=== PATIENT | female | born 1950 | race Hispanic/Latino ===

== ENCOUNTER → 2017-06-13 | Outpatient (CLI) | payer MEDICARE ==
[~2017-06-13] MED LIST: ALEN70TA47 PO; AMLO2.5T PO; CALC-1174 PO; CHOL100040 PO; CYAN10009 PO; LISI-617 PO; OMEP40CA37 PO
[2017-06-13 15:23] VITALS: BP 144/81
== END | disposition home or self-care (01) ==
LOC: WHH 10:45
PROVIDERS: ATTEND Podiatrist Foot & Ankle Surgery
DX: L97.311 Non-pressure chronic ulcer of right ankle limited to breakdown of skin (principal); I10 Essential (primary) hypertension; E78.00 Pure hypercholesterolemia, unspecified; M19.90 Unspecified osteoarthritis, unspecified site
CPT/HCPCS: A4450; A4649; G0463

== ENCOUNTER → 2017-07-11 | Outpatient (CLI) | payer MEDICARE ==
[~2017-07-11] MED LIST changes: +LIDOCAINE/PRILOCAINE CREAM 5GM TUBE TP ONE
[2017-07-11 14:41] VITALS: BP 114/57
== END | disposition home or self-care (01) ==
LOC: WHH 09:40
PROVIDERS: ATTEND Podiatrist Foot & Ankle Surgery
DX: L97.311 Non-pressure chronic ulcer of right ankle limited to breakdown of skin (principal); I10 Essential (primary) hypertension; E78.00 Pure hypercholesterolemia, unspecified; M19.90 Unspecified osteoarthritis, unspecified site; I73.9 Peripheral vascular disease, unspecified
CPT/HCPCS: 11042; A4649; J3490

== ENCOUNTER 2017-07-25 10:30 | Outpatient (CLI) | payer MEDICARE ==
[~2017-07-25 10:30] MED LIST changes: -LIDOCAINE/PRILOCAINE CREAM 5GM TUBE TP ONE
[2017-07-25 15:17] VITALS: BP 150/86
== END 2017-07-25 17:00 | disposition home or self-care (01) ==
LOC: WHH 10:30
PROVIDERS: ATTEND Podiatrist Foot & Ankle Surgery
DX: L89.519 Pressure ulcer of right ankle, unspecified stage (principal); I10 Essential (primary) hypertension; E78.00 Pure hypercholesterolemia, unspecified; M19.90 Unspecified osteoarthritis, unspecified site; I73.9 Peripheral vascular disease, unspecified
CPT/HCPCS: 82948; G0463

== ENCOUNTER 2018-08-02 08:11 | Day surgery (SDC) | payer MEDICARE ==
[2018-08-01 16:12] LABS: CREATININE 0.5 mg/dL (0.5-1.5); POTASSIUM 4.2 mmol/L (3.5-5.1)
[2018-08-01 16:21] VITALS: BP 109/52
[2018-08-01 16:22] LABS: BASOPHILS % (AUTO) 1.2 % (0.0-5.0); EOSINOPHILS % (AUTO) 0.7 % (0.0-8.0); HEMATOCRIT 33.7 % (36-48); MEAN CORPUSCULAR HEMOGLOBIN 30.1 pg (27.0-33.0); MEAN CORPUSCULAR HGB CONC 33.9 g/dL (32.0-36.0); MONOCYTES % (AUTO) 6.4 % (3.0-13.0); NEUTROPHILS % (AUTO) 64.7 % (40.0-77.0); PLATELET COUNT (AUTO) 291 K/uL (130-400); RED BLOOD CELL COUNT(AUTO) 3.78 MIL/uL (4.00-5.50); RED CELL DISTRIBUTION WIDTH 13.9 % (11.0-15.5); WHITE BLOOD COUNT (AUTO) 5.6 K/uL (4.8-10.8)
--- NOTE | 2018-08-01 16:47 | NUR ---
NAPROXEN INFORMED DR. BALTAZAR PT USED NAPROXEN YESTERDAY. NO ORDERS RECEIVED. PROCEED WITH PLANNED PROCEDURE
[2018-08-02] VITALS (14 sets, daily range): BP systolic 103–131; BP diastolic 54–74
[~2018-08-02] VITALS: Ht 154.9 cm; Wt 60.1 kg
[~2018-08-02 08:11] MED LIST changes: -ALEN70TA47 PO; -AMLO2.5T PO; +AMLO2.5T4 PO; +ATOR20TA65 PO; -CALC-1174 PO; -CHOL100040 PO; -CYAN10009 PO; +FE F1CAP33 PO; +NAPR375T6 PO
[2018-08-02] MEDS ORDERED: LACTATED RINGERS 1000ML 1,000 ML IV ONE (09:37)
[2018-08-02] MEDS ORDERED: CEFAZOLIN SODIUM 1 GM VIAL ONE ×2 (09:37→11:08)
[2018-08-02] MEDS ORDERED: ONDANSETRON HCL 4 MG/2 ML VIAL ONE ×2 (10:23→10:27)
[2018-08-02] MEDS ORDERED: LIDOCAINE PF 2% 5ML ABBOJECT ONE (10:23)
[2018-08-02] MEDS ORDERED: DEXAMETHASONE SOD PHOSPHATE 10MG/ML 1ML VIAL ONE ×2 (10:23→10:27)
[2018-08-02] MEDS ORDERED: SUCCINYLCHOLINE 200MG/10ML SYR ONE (10:23)
[2018-08-02] MEDS ORDERED: GLYCOPYRROLATE 1 MG/5 ML SYRINGE ONE (10:24)
[2018-08-02] MEDS ORDERED: MIDAZOLAM HCL 1 MG/ML 2ML VIAL ONE (10:25)
[2018-08-02] MEDS ORDERED: NEOSTIGMINE 5MG/5ML SYR IV ONE (10:25)
[2018-08-02] MEDS ORDERED: PROPOFOL 10 MG/ML 20ML VIAL IV ONE (10:25)
[2018-08-02] MEDS ORDERED: FENTANYL CITRATE PF 50 MCG/1 ML 2ML VIAL ONE ×2 (10:25→11:34)
[2018-08-02] MEDS ORDERED: ROCURONIUM 10MG/1ML SYR 10 MG/ML ML ONE (10:26)
[2018-08-02] MEDS ORDERED: FAMOTIDINE/PF 20 MG/2 ML VIAL IV ONE (10:47)
[2018-08-02] MEDS ORDERED: SODIUM CHLORIDE 0.9% 10 ML VIAL ONE (11:09)
[2018-08-02] MEDS ORDERED: BUPIVACAINE/PF 0.25% 30ML VIAL IJ ONE (11:44)
[2018-08-02] MEDS ORDERED: CEPH500B PO (12:06)
[2018-08-02] MEDS ORDERED: TYL3 PO (12:06)
--- NOTE | 2018-08-02 13:03 | NUR ---
POST PROCEDURE RECEIVED FROM PACU VIA STRETCHER S/P RIGHT ANKLE HARDWARE REMOVAL. CONNECTED TO CONTINUOUS CARDIOPULMONARY MONITORING. ALERT, DENIES PAIN AT PRESENT TIME. RENETTA WRAP TO RIGHT ANKLE CD&I. 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
--- NOTE | 2018-08-02 13:30 | NUR ---
ACTIVITY UP TO CHAIR WITH STANDBY ASSIST OF 1. TOLERATED W/O COMPLICATIONS. DENIES DIZZINESS, PAIN, OR NAUSEA.
--- NOTE | 2018-08-02 13:46 | NUR ---
DISCHARGE DISCHARGE INSTRUCTIONS INCLUDING DIET, NEW MEDICATIONS, ACTIVITY(PARTIAL WEIGHT BEARING WITH CRUTCHES), AND REASONS TO NOTIFY DR. BALTAZAR (FEVER >101, AND SEVERE PAIN NOT RELIEVED BY PAIN MEDICATION), DRESSING CARE DISCUSSED WITH DAUGHTER AND PT. TRANSLATED TO [facility] BY DEJUAN PUENTE. PER SON PT HAS CRUTCHES IN THE VAN. OPPORTUNITY GIVEN TO ASK QUESTIONS. QUESTIONS ADDRESSED.
--- NOTE | 2018-08-02 13:47 | NUR ---
DISCHARGE DISCHARGED VIA W/C. AWAKE IN NO ACUTE DISTRESS. DENIES PAIN. RENETTA WRAP DRESSING TO RIGHT ANKLE CD&I.
== END 2018-08-02 13:46 | disposition home or self-care (01) ==
LOC: DAH 08:11
PROVIDERS: ATTEND Orthopaedic Surgery
DX: T84.098A Other mechanical complication of other internal joint prosthesis, initial encounter (principal); Z98.890 Other specified postprocedural states; I10 Essential (primary) hypertension; E78.00 Pure hypercholesterolemia, unspecified; M81.0 Age-related osteoporosis without current pathological fracture; M19.90 Unspecified osteoarthritis, unspecified site; Z79.899 Other long term (current) drug therapy; Z90.710 Acquired absence of both cervix and uterus; G89.29 Other chronic pain
CPT/HCPCS: 20680; 36415; 76000; 80048; 85025; 88300; 93005; A4218; A4649; A4930 ×2; A6223; J0330; J0690 ×2; J1100 ×2; J2001; J2250; J2405 ×2; J2704; J2710; J3010 ×2; J3490 ×3; J7120

== ENCOUNTER 2020-10-29 17:04 | Emergency (ER) | payer OTHER, MEDICARE ==
[~2020-10-29 17:04] MED LIST changes: +CEPH500B PO; -LISI-617 PO; +LISI-809 PO; +OMEP40CA13 PO; -OMEP40CA37 PO; +TYL3 PO
[2020-10-29] MEDS ORDERED: FENTANYL CITRATE PF 50 MCG/1 ML 2ML VIAL ONE (20:28)
[2020-10-29] MEDS ORDERED: LORAZEPAM 2 MG/ML 1 ML VIAL ONE (20:29)
[2020-10-29] MEDS ORDERED: PROPOFOL 10 MG/ML 20ML VIAL IV ONE (21:03)
== END 2020-10-29 23:26 | disposition home or self-care (01) ==
LOC: EDH 17:04
DX: S43.014A Anterior dislocation of right humerus, initial encounter (principal); I10 Essential (primary) hypertension; M81.0 Age-related osteoporosis without current pathological fracture; X58.XXXA Exposure to other specified factors, initial encounter; Y93.89 Activity, other specified; Y92.89 Other specified places as the place of occurrence of the external cause; Y99.8 Other external cause status
CPT/HCPCS: 23650; 71045; 73020; 96374; 96375; 99285; J2060; J2704; J3010

== ENCOUNTER 2021-11-03 19:19 | Inpatient (IN) | payer OTHER, MEDICARE ==
[~2021-11-03] VITALS: Ht 162.6 cm; Wt 69.0 kg
[~2021-11-03 19:19] MED LIST changes: -LISI-809 PO; +LISI5TAB21 PO; -OMEP40CA13 PO; +OMEP40CA21 PO
[2021-11-03 19:51] LABS: BASOPHILS % (AUTO) 0.6 % (0.0-5.0); EOSINOPHILS % (AUTO) 0.8 % (0.0-8.0); HEMATOCRIT 28.9 % (36-48); LYMPHOCYTES % (AUTO) 27.4 % (21.0-51.0); MEAN CORPUSCULAR HEMOGLOBIN 28.9 pg (27.0-33.0); MEAN CORPUSCULAR HGB CONC 34.9 g/dL (32.0-36.0); MEAN CORPUSCULAR VOLUME 82.8 fL (79-99); MONOCYTES % (AUTO) 7.9 % (3.0-13.0); PLATELET COUNT (AUTO) 240 K/uL (130-400); RED BLOOD CELL COUNT(AUTO) 3.49 MIL/uL (4.00-5.50); RED CELL DISTRIBUTION WIDTH 13.5 % (11.0-15.5); WHITE BLOOD COUNT (AUTO) 6.2 K/uL (4.8-10.8)
[2021-11-03] MEDS ORDERED: MORPHINE 4 MG SYG IVP ONE (20:00)
[2021-11-03] MEDS ORDERED: KETOROLAC 15MG/ML VIAL (15MG/ML) IV ONE (20:00)
[2021-11-03] MEDS ORDERED: ONDANSETRON 4MG INJ IVP ONE (20:00)
[2021-11-03 20:18] LABS: INR 0.94 (0.85-1.15); PROTHROMBIN TIME 10.3 SEC (9.6-11.6)
[2021-11-03 20:25] LABS: ALBUMIN 3.7 g/dL (3.5-5.0); BILIRUBIN,TOTAL 0.4 mg/dL (0.2-1.0); CREATININE 0.5 mg/dL (0.5-1.5); POTASSIUM 3.2 mmol/L (3.5-5.1); TOTAL PROTEIN, SERUM 6.6 g/dL (6.0-8.3)
[2021-11-03] MEDS ORDERED: 0.9% NACL 500ML IV.SOLN 500 ML IV ONE (21:00)
[2021-11-03 21:18] LABS: APPEARANCE,URINE Clear (CLEAR); BILIRUBIN,URINE Negative (NEGATIVE); COLOR,URINE Yellow (YELLOW); GLUCOSE, URINE (UA) Negative (NEGATIVE); KETONES,URINE Negative (NEGATIVE); LEUKOCYTE ESTERASE ,URINE Negative (NEGATIVE); NITRATE,URINE Negative (NEGATIVE); OCCULT BLOOD,URINE Negative (NEGATIVE); PH,URINE 6.5 (5.0-8.0); PROTEIN,URINE Negative (NEGATIVE); UROBILINOGEN,URINE 0.2 mg/dL (0.2-1.0)
[2021-11-03 23:00] VITALS: BP 104/60
[2021-11-03] MEDS ORDERED: HYDROCODONE/ACETAMINOPHEN 5/325 MG TAB PO PRN (23:45)
[2021-11-04] MEDS ORDERED: HYDRALAZINE 20MG/ML VIAL IV PRN
[2021-11-04] MEDS ORDERED: ACETAMINOPHEN 650 MG SUPPOSITORY RC PRN
[2021-11-04] MEDS ORDERED: ONDANSETRON 4MG INJ IVP PRN
[2021-11-04] MEDS ORDERED: LACTULOSE 20 GM/30 ML UDCUP PO PRN
[2021-11-04] MEDS: HYDROCODONE/ACETAMINOPHEN 5/325 MG TAB PO PRN ×2 (00:05→20:45)
[2021-11-04] MEDS: 0.9%NACL 1000ML 1,000 ML IV SCH ×3 (00:07→16:00)
[2021-11-04] MEDS: IPRATROPIUM 0.5 MG/2.5 ML INH IH SCH ×5 (02:06→23:09)
[2021-11-04 03:26] VITALS: BP 130/66
[2021-11-04 03:48] LABS: MEAN CORPUSCULAR HEMOGLOBIN 28.9 pg (27.0-33.0); MEAN CORPUSCULAR HGB CONC 35.4 g/dL (32.0-36.0); MEAN CORPUSCULAR VOLUME 81.9 fL (79-99); RED BLOOD CELL COUNT(AUTO) 3.42 MIL/uL (4.00-5.50); RED CELL DISTRIBUTION WIDTH 13.3 % (11.0-15.5); WHITE BLOOD COUNT (AUTO) 9.3 K/uL (4.8-10.8)
[2021-11-04 04:02] LABS: INR 0.93 (0.85-1.15); PROTHROMBIN TIME 10.2 SEC (9.6-11.6)
[2021-11-04 04:24] LABS: CREATININE 0.5 mg/dL (0.5-1.5); MAGNESIUM 1.5 mg/dL (1.80-2.40); PHOSPHORUS 3.7 mg/dL (2.5-4.9); POTASSIUM 3.8 mmol/L (3.5-5.1)
[2021-11-04 07:45] VITALS: BP 124/76
[2021-11-04] MEDS: MAGNESIUM 2GM PREMIX 50ML 50 ML IV PRN (10:37)
[2021-11-04 11:03] LABS: CREATININE 0.5 mg/dL (0.5-1.5); POTASSIUM 3.7 mmol/L (3.5-5.1)
[2021-11-04 11:08] LABS: ALBUMIN 3.3 g/dL (3.5-5.0); BILIRUBIN,TOTAL 0.7 mg/dL (0.2-1.0); TOTAL PROTEIN, SERUM 6.2 g/dL (6.0-8.3)
[2021-11-04 11:21] VITALS: BP 137/65
[2021-11-04 16:46] VITALS: BP 123/69
[2021-11-04 19:22] VITALS: BP 135/74
[2021-11-04] MEDS ORDERED: FAMO20TA8 PO (19:57)
[2021-11-04] MEDS ORDERED: ALEN70TA2 PO (19:57)
[2021-11-04 23:35] VITALS: BP 130/74
[2021-11-05] VITALS (26 sets, daily range): BP systolic 111–176; BP diastolic 48–84
[2021-11-05 04:04] LABS: HEMATOCRIT 29.2 % (36-48); MEAN CORPUSCULAR HEMOGLOBIN 28.7 pg (27.0-33.0); MEAN CORPUSCULAR HGB CONC 34.6 g/dL (32.0-36.0); RED BLOOD CELL COUNT(AUTO) 3.52 MIL/uL (4.00-5.50); RED CELL DISTRIBUTION WIDTH 13.5 % (11.0-15.5)
[2021-11-05 04:55] LABS: ALBUMIN 3.1 g/dL (3.5-5.0); BILIRUBIN,TOTAL 0.6 mg/dL (0.2-1.0); CREATININE 0.6 mg/dL (0.5-1.5); MAGNESIUM 2.1 mg/dL (1.80-2.40); POTASSIUM 3.8 mmol/L (3.5-5.1); T4 (THYROXINE) 7.8 ug/dL (4.7-13.3); THYROID STIMULATING HORMONE 3.82 uIU/mL (0.36-3.74); TOTAL PROTEIN, SERUM 6.2 g/dL (6.0-8.3)
[2021-11-05] MEDS: IPRATROPIUM 0.5 MG/2.5 ML INH IH SCH ×3 (06:53→20:07)
[2021-11-05] MEDS ORDERED: PROPOFOL 10 MG/ML 20ML VIAL IV ONE (07:35)
[2021-11-05] MEDS ORDERED: FENTANYL CITRATE PF 50 MCG/1 ML 5ML AMP IV ONE (07:35)
[2021-11-05] MEDS ORDERED: MIDAZOLAM HCL 1 MG/ML 2ML VIAL ONE (07:35)
[2021-11-05] MEDS ORDERED: ONDANSETRON 4MG INJ ONE ×2 (07:54→09:50)
[2021-11-05] MEDS: 0.9%NACL 1000ML 1,000 ML IV SCH ×6 (08:00→18:33)
[2021-11-05] MEDS ORDERED: CEFAZOLIN SODIUM 1 GM VIAL ONE (08:06)
[2021-11-05] MEDS ORDERED: LIDOCAINE 1%-EPI 1:100,000 20 ML VIAL IJ ONE (08:07)
[2021-11-05] MEDS ORDERED: ROCURONIUM 10MG/1ML SYR 10 MG/ML ML ONE (08:09)
[2021-11-05] MEDS ORDERED: LIDOCAINE HCL-MPF 1% 2ML VIAL IJ PRN (08:30)
[2021-11-05] MEDS: CEFAZOLIN SODIUM 1 GM VIAL IVP SCH ×2 (08:30→18:33)
[2021-11-05] MEDS ORDERED: DiphenhydrAMINE HCL 50 MG/ML VIAL IVP PRN (08:30)
[2021-11-05] MEDS: POLYETHYLENE GLYCOL 3350 17 GM POWD.PACK PO SCH (09:00)
[2021-11-05] MEDS: APIXABAN 2.5 MG TABLET PO SCH ×2 (09:00→21:02)
[2021-11-05] MEDS ORDERED: ROPIVACAINE 0.5% 5MG/ML 30ML IJ ONE (09:08)
[2021-11-05] MEDS ORDERED: NEOSTIGMINE 5MG/5ML SYR IV ONE (09:41)
[2021-11-05] MEDS ORDERED: GLYCOPYRROLATE 1 MG/5 ML SYRINGE ONE (09:41)
[2021-11-05] MEDS ORDERED: MEPERIDINE-PF 25 MG/ML SYG ONE (10:08)
[2021-11-05] MEDS ORDERED: IPRATROPIUM/ALBUTEROL SULFATE 3 ML SOLUTION IH ONE (10:09)
[2021-11-05] MEDS: KETOROLAC 15MG/ML VIAL (15MG/ML) IV PRN ×2 (10:12→21:05)
[2021-11-05] MEDS: INSULIN HUMULIN R 100 UNIT/ML 3ML SQ SCH ×3 (11:30→21:00)
[2021-11-05] MEDS: PSYLLIUM SEED 1 EACH PACKET PO SCH (12:00)
[2021-11-06] MEDS: CEFAZOLIN SODIUM 1 GM VIAL IVP SCH ×3 (00:55→08:30)
[2021-11-06] MEDS: IPRATROPIUM 0.5 MG/2.5 ML INH IH SCH ×4 (00:55→18:17)
[2021-11-06 03:33] LABS: HEMATOCRIT 26.1 % (36-48); MEAN CORPUSCULAR HEMOGLOBIN 28.7 pg (27.0-33.0); MEAN CORPUSCULAR HGB CONC 34.1 g/dL (32.0-36.0); MEAN CORPUSCULAR VOLUME 84.2 fL (79-99); RED BLOOD CELL COUNT(AUTO) 3.1 MIL/uL (4.00-5.50); RED CELL DISTRIBUTION WIDTH 13.6 % (11.0-15.5); WHITE BLOOD COUNT (AUTO) 6.6 K/uL (4.8-10.8)
[2021-11-06 03:50] VITALS: BP 117/66
[2021-11-06 04:03] LABS: ALBUMIN 2.7 g/dL (3.5-5.0); BILIRUBIN,TOTAL 0.4 mg/dL (0.2-1.0); CREATININE 0.5 mg/dL (0.5-1.5); MAGNESIUM 1.6 mg/dL (1.80-2.40); POTASSIUM 3.2 mmol/L (3.5-5.1); TOTAL PROTEIN, SERUM 5.5 g/dL (6.0-8.3)
[2021-11-06] MEDS: 0.9%NACL 1000ML 1,000 ML IV SCH (04:30)
[2021-11-06] MEDS: INSULIN HUMULIN R 100 UNIT/ML 3ML SQ SCH ×4 (06:09→20:07)
[2021-11-06 06:38] VITALS: BP 130/70
[2021-11-06] MEDS: DOCUSATE SODIUM 100 MG CAP PO SCH ×2 (07:59→20:08)
[2021-11-06] MEDS: AMLODIPINE 2.5 MG TAB PO SCH (07:59)
[2021-11-06] MEDS: APIXABAN 2.5 MG TABLET PO SCH ×2 (07:59→20:08)
[2021-11-06] MEDS: KETOROLAC 15MG/ML VIAL (15MG/ML) IV PRN (08:00)
[2021-11-06] MEDS: POLYETHYLENE GLYCOL 3350 17 GM POWD.PACK PO SCH (08:00)
[2021-11-06] MEDS: ALENDRONATE SODIUM 35 MG TAB PO SCH (08:44)
[2021-11-06] MEDS ORDERED: PHARMACY COMMUNICATION MISC SCH (11:00)
[2021-11-06 11:52] VITALS: BP 131/57
[2021-11-06] MEDS: PSYLLIUM SEED 1 EACH PACKET PO SCH (12:46)
[2021-11-06] MEDS: SODIUM CHLORIDE 1,000 MG TAB PO SCH ×2 (14:36→20:09)
[2021-11-06 16:00] VITALS: BP 125/57
[2021-11-06] MEDS ORDERED: POTASSIUM CHLORIDE 10% ELIXIR 20 MEQ/15 ML UDCUP PO PRN (18:30)
[2021-11-06] MEDS ORDERED: KCL 20 MEQ ERTAB PO ONE (18:41)
[2021-11-06] MEDS: MAGNESIUM 2GM PREMIX 50ML 50 ML IV PRN (18:45)
[2021-11-06 19:58] VITALS: BP 133/64
[2021-11-06] MEDS: ATORVASTATIN 20 MG TABLET PO SCH (20:07)
[2021-11-06] MEDS: KCL 20 MEQ ERTAB PO PRN (20:08)
[2021-11-06] MEDS: TEMAZEPAM 15 MG CAPSULE PO PRN (20:11)
[2021-11-06] MEDS: HYDROCODONE/ACETAMINOPHEN 5/325 MG TAB PO PRN (20:13)
[2021-11-06] MEDS: BENZOCAINE/MENTH/CETYLPYRD CL 1 EACH LOZENGE MM PRN (20:13)
[2021-11-06 23:14] VITALS: BP_SYST 88; BP_SYST 98; BP_DIAS 48; BP_DIAS 51
[2021-11-07] MEDS: IPRATROPIUM 0.5 MG/2.5 ML INH IH SCH ×5 (01:21→23:41)
[2021-11-07 03:26] VITALS: BP 128/63
[2021-11-07 03:29] LABS: HEMATOCRIT 23.7 % (36-48); MEAN CORPUSCULAR HEMOGLOBIN 28.4 pg (27.0-33.0); MEAN CORPUSCULAR HGB CONC 33.8 g/dL (32.0-36.0); RED BLOOD CELL COUNT(AUTO) 2.82 MIL/uL (4.00-5.50); RED CELL DISTRIBUTION WIDTH 13.5 % (11.0-15.5); WHITE BLOOD COUNT (AUTO) 6.4 K/uL (4.8-10.8)
[2021-11-07 03:44] LABS: ALBUMIN 2.5 g/dL (3.5-5.0); BILIRUBIN,TOTAL 0.6 mg/dL (0.2-1.0); CREATININE 0.4 mg/dL (0.5-1.5); MAGNESIUM 2.1 mg/dL (1.80-2.40); POTASSIUM 3.7 mmol/L (3.5-5.1); TOTAL PROTEIN, SERUM 5.7 g/dL (6.0-8.3)
[2021-11-07] MEDS: INSULIN HUMULIN R 100 UNIT/ML 3ML SQ SCH ×4 (05:47→19:56)
[2021-11-07 07:30] VITALS: BP 133/63
[2021-11-07] MEDS: APIXABAN 2.5 MG TABLET PO SCH ×2 (08:14→19:53)
[2021-11-07] MEDS: DOCUSATE SODIUM 100 MG CAP PO SCH ×2 (08:14→19:52)
[2021-11-07] MEDS: AMLODIPINE 2.5 MG TAB PO SCH (08:14)
[2021-11-07] MEDS: POLYETHYLENE GLYCOL 3350 17 GM POWD.PACK PO SCH (08:14)
[2021-11-07] MEDS: SODIUM CHLORIDE 1,000 MG TAB PO SCH ×3 (08:18→19:52)
[2021-11-07] MEDS ORDERED: BISACODYL 5 MG TABLET.DR PO PRN (08:30)
[2021-11-07 11:00] VITALS: BP 122/69
[2021-11-07] MEDS: PSYLLIUM SEED 1 EACH PACKET PO SCH (12:00)
[2021-11-07 16:00] VITALS: BP 121/46
[2021-11-07] MEDS: ATORVASTATIN 20 MG TABLET PO SCH (19:52)
[2021-11-07 20:00] VITALS: BP 107/65
[2021-11-07] MEDS: TEMAZEPAM 15 MG CAPSULE PO PRN (23:55)
[2021-11-07] MEDS: BENZOCAINE/MENTH/CETYLPYRD CL 1 EACH LOZENGE MM PRN (23:55)
[2021-11-08] VITALS (7 sets, daily range): BP systolic 103–152; BP diastolic 45–57
[2021-11-08 02:33] LABS: HEMATOCRIT 23.6 % (36-48); MEAN CORPUSCULAR HEMOGLOBIN 28.8 pg (27.0-33.0); MEAN CORPUSCULAR HGB CONC 34.3 g/dL (32.0-36.0); RED BLOOD CELL COUNT(AUTO) 2.81 MIL/uL (4.00-5.50); RED CELL DISTRIBUTION WIDTH 13.2 % (11.0-15.5); WHITE BLOOD COUNT (AUTO) 6.6 K/uL (4.8-10.8)
[2021-11-08 02:50] LABS: ALBUMIN 2.5 g/dL (3.5-5.0); BILIRUBIN,TOTAL 0.5 mg/dL (0.2-1.0); CREATININE 0.5 mg/dL (0.5-1.5); MAGNESIUM 1.5 mg/dL (1.80-2.40); POTASSIUM 3.3 mmol/L (3.5-5.1); TOTAL PROTEIN, SERUM 5.7 g/dL (6.0-8.3)
[2021-11-08] MEDS: KCL 20 MEQ ERTAB PO PRN ×4 (03:57→13:00)
[2021-11-08] MEDS: MAGNESIUM 2GM PREMIX 50ML 50 ML IV PRN (03:57)
[2021-11-08] MEDS: FERROUS FUMARATE 324 MG TABLET PO PRN (05:35)
[2021-11-08] MEDS: ACETAMINOPHEN 325 MG TAB PO PRN ×2 (05:36→15:10)
[2021-11-08] MEDS: INSULIN HUMULIN R 100 UNIT/ML 3ML SQ SCH ×4 (05:52→19:49)
[2021-11-08] MEDS: IPRATROPIUM 0.5 MG/2.5 ML INH IH SCH ×4 (06:49→23:49)
[2021-11-08] MEDS ORDERED: BISACODYL 10 MG SUPP.RECT RC PRN (08:30)
[2021-11-08] MEDS: AMLODIPINE 2.5 MG TAB PO SCH (09:00)
[2021-11-08] MEDS: DOCUSATE SODIUM 100 MG CAP PO SCH ×2 (10:08→20:08)
[2021-11-08] MEDS: SODIUM CHLORIDE 1,000 MG TAB PO SCH ×2 (10:08→20:08)
[2021-11-08] MEDS: ALENDRONATE SODIUM 35 MG TAB PO SCH (10:09)
[2021-11-08] MEDS: APIXABAN 2.5 MG TABLET PO SCH ×2 (10:09→20:08)
[2021-11-08] MEDS: POLYETHYLENE GLYCOL 3350 17 GM POWD.PACK PO SCH (10:09)
[2021-11-08] MEDS: PSYLLIUM SEED 1 EACH PACKET PO SCH (13:00)
[2021-11-08] MEDS: ATORVASTATIN 20 MG TABLET PO SCH (20:08)
[2021-11-08] MEDS: HYDROCODONE/ACETAMINOPHEN 5/325 MG TAB PO PRN (20:09)
[2021-11-09 04:00] LABS: HEMATOCRIT 21.9 % (36-48); MEAN CORPUSCULAR HEMOGLOBIN 28.3 pg (27.0-33.0); MEAN CORPUSCULAR HGB CONC 33.3 g/dL (32.0-36.0); MEAN CORPUSCULAR VOLUME 84.9 fL (79-99); RED BLOOD CELL COUNT(AUTO) 2.58 MIL/uL (4.00-5.50); RED CELL DISTRIBUTION WIDTH 13.5 % (11.0-15.5); WHITE BLOOD COUNT (AUTO) 5.4 K/uL (4.8-10.8)
[2021-11-09 04:11] VITALS: BP 122/58
[2021-11-09 04:11] LABS: CREATININE 0.6 mg/dL (0.5-1.5); MAGNESIUM 1.7 mg/dL (1.80-2.40); PHOSPHORUS 4.2 mg/dL (2.5-4.9); POTASSIUM 4.3 mmol/L (3.5-5.1)
[2021-11-09] MEDS: FERROUS FUMARATE 324 MG TABLET PO PRN (04:39)
[2021-11-09] MEDS: MAGNESIUM 2GM PREMIX 50ML 50 ML IV PRN (04:40)
[2021-11-09] MEDS: INSULIN HUMULIN R 100 UNIT/ML 3ML SQ SCH ×4 (05:59→21:00)
[2021-11-09] MEDS: IPRATROPIUM 0.5 MG/2.5 ML INH IH SCH ×4 (06:08→23:24)
[2021-11-09 07:00] VITALS: BP 135/65
[2021-11-09] MEDS: DOCUSATE SODIUM 100 MG CAP PO SCH ×3 (08:44→21:46)
[2021-11-09] MEDS: AMLODIPINE 2.5 MG TAB PO SCH (08:44)
[2021-11-09] MEDS: POLYETHYLENE GLYCOL 3350 17 GM POWD.PACK PO SCH ×2 (08:45→08:47)
[2021-11-09] MEDS: APIXABAN 2.5 MG TABLET PO SCH ×2 (08:45→21:46)
[2021-11-09] MEDS: ACETAMINOPHEN 325 MG TAB PO PRN (08:46)
[2021-11-09] MEDS: SODIUM CHLORIDE 1,000 MG TAB PO SCH ×2 (08:47→21:46)
[2021-11-09 11:00] VITALS: BP 121/63
[2021-11-09] MEDS: PSYLLIUM SEED 1 EACH PACKET PO SCH (13:21)
[2021-11-09 15:00] VITALS: BP 95/51
[2021-11-09 20:11] VITALS: BP 135/51
[2021-11-09] MEDS: ATORVASTATIN 20 MG TABLET PO SCH (21:46)
[2021-11-09] MEDS: HYDROCODONE/ACETAMINOPHEN 5/325 MG TAB PO PRN (21:49)
[2021-11-10 00:01] VITALS: BP 123/72
[2021-11-10 04:26] LABS: HEMATOCRIT 21.5 % (36-48); MEAN CORPUSCULAR HEMOGLOBIN 28.3 pg (27.0-33.0); MEAN CORPUSCULAR VOLUME 83.3 fL (79-99); RED BLOOD CELL COUNT(AUTO) 2.58 MIL/uL (4.00-5.50); RED CELL DISTRIBUTION WIDTH 13.4 % (11.0-15.5); WHITE BLOOD COUNT (AUTO) 5.6 K/uL (4.8-10.8)
[2021-11-10 04:32] VITALS: BP 122/59
[2021-11-10 04:41] LABS: CREATININE 0.5 mg/dL (0.5-1.5); MAGNESIUM 1.6 mg/dL (1.80-2.40); PHOSPHORUS 4.4 mg/dL (2.5-4.9); POTASSIUM 3.9 mmol/L (3.5-5.1)
[2021-11-10] MEDS: INSULIN HUMULIN R 100 UNIT/ML 3ML SQ SCH ×3 (06:42→16:30)
[2021-11-10] MEDS: MAGNESIUM 2GM PREMIX 50ML 50 ML IV PRN (06:45)
[2021-11-10] MEDS: IPRATROPIUM 0.5 MG/2.5 ML INH IH SCH ×2 (06:56→11:12)
[2021-11-10 07:38] VITALS: BP 94/71
[2021-11-10] MEDS: APIXABAN 2.5 MG TABLET PO SCH (09:03)
[2021-11-10] MEDS: DOCUSATE SODIUM 100 MG CAP PO SCH (09:03)
[2021-11-10] MEDS: AMLODIPINE 2.5 MG TAB PO SCH (09:03)
[2021-11-10] MEDS: POLYETHYLENE GLYCOL 3350 17 GM POWD.PACK PO SCH (09:03)
[2021-11-10] MEDS: SODIUM CHLORIDE 1,000 MG TAB PO SCH (09:04)
[2021-11-10 10:50] VITALS: BP 104/52
[2021-11-10] MEDS: PSYLLIUM SEED 1 EACH PACKET PO SCH (11:18)
[2021-11-10 15:57] VITALS: BP 108/81
== END 2021-11-10 18:52 | disposition home health service (06) | DRG 481 ==
LOC: EDH 19:19 → EDHIP 21:01 → 4AH 23:03
PROVIDERS: ADMIT Internal Medicine Critical Care Medicine; ATTEND Internal Medicine Critical Care Medicine
PROC: 0QSB04Z Reposition Right Lower Femur with Internal Fixation Device, Open Approach (ICD-10-PCS; principal; 2021-11-05 08:00)
PROC: 3E0T3BZ Introduction of Anesthetic Agent into Peripheral Nerves and Plexi, Percutaneous Approach (ICD-10-PCS; 2021-11-05 08:00)
DX: S72.401A Unspecified fracture of lower end of right femur, initial encounter for closed fracture (principal); E87.1 Hypo-osmolality and hyponatremia; D64.9 Anemia, unspecified; E87.5 Hyperkalemia; E11.65 Type 2 diabetes mellitus with hyperglycemia; E83.51 Hypocalcemia; I10 Essential (primary) hypertension; K21.9 Gastro-esophageal reflux disease without esophagitis; E83.42 Hypomagnesemia; E86.0 Dehydration; E87.6 Hypokalemia; Z79.84 Long term (current) use of oral hypoglycemic drugs; Z79.01 Long term (current) use of anticoagulants; Z20.822 Contact with and (suspected) exposure to COVID-19; E78.00 Pure hypercholesterolemia, unspecified; W01.0XXA Fall on same level from slipping, tripping and stumbling without subsequent striking against object, initial encounter; Y93.89 Activity, other specified; Y92.098 Other place in other non-institutional residence as the place of occurrence of the external cause; Y99.8 Other external cause status
CPT/HCPCS: 36415; 51702; 71045; 73552; 73562; 80048; 80053; 81003; 82533; 82948; 83735; 84100; 84300; 84436; 84443; 84484; 85025; 85027; 85610; 86850; 86900; 86901; 87635; 93005; 94640; 94664; 97039; C9803; G0378; J0690; J1885; J2175; J2250; J2270; J2405; J2704; J2710; J2795; J3010; J3475; J3490; J7030; J7040